=== PATIENT | female | born 1965 | race Caucasian/White ===

== ENCOUNTER 2019-08-01 16:28 | Emergency (ER) | payer MEDICAID ==
[2019-08-01 17:02] LABS: BASOPHILS # (AUTO) 0.1 10^3/uL (0.0-0.1); BASOPHILS % (AUTO) 0.6 %; EOSINOPHILS # (AUTO) 0.3 10^3/uL (0.0-0.7); EOSINOPHILS % (AUTO) 2.3 %; HGB - HEMOGLOBIN 15.1 g/dL (12.0-16.0); LYMPHOCYTES # (AUTO) 3.2 10^3/uL (1.5-3.5); LYMPHOCYTES % (AUTO) 26.4 %; MEAN CORPUSCULAR HEMOGLOBIN 31.1 pg (27.0-31.0); MEAN CORPUSCULAR HGB CONC 34.4 g/dL (32.0-36.0); MEAN CORPUSCULAR VOLUME 90.3 fL (81.0-99.0); MEAN PLATELET VOLUME 10.2 fL (7.9-10.8); MONOCYTES % (AUTO) 8.2 %; NEUTROPHILS # (AUTO) 7.6 10^3/uL (1.5-6.6); NEUTROPHILS % (AUTO) 62.2 %; PLT - PLATELET COUNT 332 10^3/uL (130-450); RED BLOOD COUNT 4.86 10^6/uL (4.20-5.40); RED CELL DISTRIBUTION WIDTH 13.8 % (12.0-15.0); WHITE BLOOD COUNT 12.3 x10^3/uL (4.8-10.8)
[2019-08-01 17:09] LABS: PT - PROTHROMBIN TIME 11.3 secs (9.9-12.6)
--- NOTE | 2019-08-01 17:11 | ED Physician Documentation ---
PD HPI NVD - Stated complaint Stated Complaint: RECTAL BLEEDING - Chief complaint Chief Complaint: Abd Pain - History obtained from History obtained from: Patient - History of Present Illness Timing - onset: Last night Timing - duration: Days (1) Timing - details: Abrupt onset Pain level max: 5 Pain level now: 4 Associated symptoms: Abdominal pain (crampy), Hematochezia. No: Fever, Chest pain, Hematemesis, Melena, Dizzy, Near syncope / syncope, Loss of appetite, Weight loss, Dysuria, Hematuria, Vaginal bleeding, Vaginal dc Contributing factors: Recent antibiotics Improved by: Other (nothing) Worsened by: Other (nothing) Recently seen: Not recently seen - Additonal information Additional information: 53-year-old female presents to the emergency department with nausea, vomiting, diarrhea last night followed by a small amount of rectal bleeding today. Bright red blood per rectum. Nothing makes it better or worse. No fevers. Review of Systems Ten Systems: 10 systems reviewed and negative Constitutional: denies: Fever, Chills Throat: denies: Sore throat Cardiac: denies: Chest pain / pressure, Palpitations Respiratory: denies: Cough GI: reports: Vomiting, Diarrhea. denies: Hematemesis : denies: Dysuria, Now EGA Skin: denies: Rash Musculoskeletal: denies: Neck pain, Back pain PD PAST MEDICAL HISTORY - Past Medical History Respiratory: Asthma - Past Surgical History /[employer]: Hysterectomy - Present Medications Home Medications: Ambulatory Orders Medication Instructions Recorded Confirmed Albuterol Sulfate [Albuterol 2 puffs PO Q8HR PRN 07/22/14 07/22/14 Sulfate Hfa] cephALEXin [Keflex] 500 mg PO Q6H #20 capsule 07/22/14 - Allergies Allergies/Adverse Reactions: Allergies Allergy/AdvReac Type Severity Reaction Status Date / Time No Known Drug Allergies Allergy Verified 08/01/19 16:34 - Social History Does the pt smoke?: No Smoking Status: Never smoker Does the pt drink ETOH?: Yes Does the pt have substance abuse?: No - Immunizations Immunizations are current?: Yes - POLST Patient has POLST: No PD ED PE NORMAL - Vitals Vital signs reviewed: Yes - General General: Alert and oriented X 3, No acute distress, Well developed/nourished - HEENT HEENT: Moist mucous membranes - Neck Neck: Supple, no meningeal sign - Cardiac Cardiac: RRR, Strong equal pulses - Respiratory Respiratory: No respiratory distress, Clear bilaterally - Abdomen Abdomen: Soft, Non tender, Non distended - Female Female : Pt declined - Derm Derm: Warm and dry, No rash - Extremities Extremities: No edema, No calf tenderness / cord - Neuro Neuro: Alert and oriented X 3 - Psych Psych: Normal mood, Normal affect Results - Vitals Vitals: Vital Signs - 24 hr 08/01/19 08/01/19 08/01/19 16:34 16:59 18:38 Temperature 37.3 C Heart Rate 86 85 82 Respiratory 16 18 16 Rate Blood Pressure 138/55 H 141/111 H 116/70 O2 Saturation 98 98 98 08/01/19 08/01/19 19:11 19:14 Temperature 36.5 C 36.5 C Heart Rate 67 65 Respiratory 19 16 Rate Blood Pressure 107/61 107/61 O2 Saturation 96 97 Oxygen O2 Source Room air - Labs Labs: Laboratory Tests 08/01/19 08/01/19 08/01/19 16:54 16:54 17:04 WBC 12.3 H RBC 4.86 Hgb 15.1 Hct 43.9 MCV 90.3 MCH 31.1 H MCHC 34.4 RDW 13.8 Plt Count 332 MPV 10.2 Neut # (Auto) 7.6 H Lymph # (Auto) 3.2 [place] # (Auto) 1.0 Eos # (Auto) 0.3 Baso # (Auto) 0.1 Absolute Nucleated RBC 0.00 Nucleated RBC % 0.0 PT 11.3 INR 1.0 APTT 31.6 Sodium 137 Potassium 3.8 Chloride 104 Carbon Dioxide 25 Anion Gap 8.0 BUN 19 Creatinine 0.7 Estimated GFR (MDRD) 88 L Glucose 104 H Calcium 8.9 Total Bilirubin 0.9 AST 23 ALT 34 Alkaline Phosphatase 102 Total Protein 7.5 Albumin 4.3 Globulin 3.2 Albumin/Globulin Ratio 1.3 Lipase 25 Urine Color Urine Clarity Urine pH Ur Specific [place] Urine Protein Urine Glucose (UA) Urine Ketones Urine Occult Blood Urine Nitrite Urine Bilirubin Urine Urobilinogen Ur Leukocyte Esterase Ur Microscopic Review Urine Culture Comments Blood Type Antibody Screen 08/01/19 08/01/19 17:05 17:33 WBC RBC Hgb Hct MCV MCH MCHC RDW Plt Count MPV Neut # (Auto) Lymph # (Auto) [place] # (Auto) Eos # (Auto) Baso # (Auto) Absolute Nucleated RBC Nucleated RBC % PT INR APTT Sodium Potassium Chloride Carbon Dioxide Anion Gap BUN Creatinine Estimated GFR (MDRD) Glucose Calcium Total Bilirubin AST ALT Alkaline Phosphatase Total Protein Albumin Globulin Albumin/Globulin Ratio Lipase Urine Color YELLOW Urine Clarity CLEAR Urine pH 6.0 Ur Specific [place] 1.025 Urine Protein NEGATIVE Urine Glucose (UA) NEGATIVE Urine Ketones NEGATIVE Urine Occult Blood NEGATIVE Urine Nitrite NEGATIVE Urine Bilirubin NEGATIVE Urine Urobilinogen 0.2 (NORMAL) Ur Leukocyte Esterase NEGATIVE Ur Microscopic Review NOT INDICATED Urine Culture Comments NOT INDICATED Blood Type O POSITIVE Antibody Screen NEGATIVE - Rads (name of study) CT abdomen pelvis Radiology: Prelim report reviewed, EMP read contemporaneously, See rad report (Colonic diverticulosis without diverticulitis. 3.2 cm left ovarian cyst. If the patient is postmenopausal, follow-up ultrasound is recommended in 3 months. ) PD MEDICAL DECISION MAKING - ED course Complexity details: reviewed results, re-evaluated patient, considered differential, d/w patient ED course: 53-year-old female with bright red blood per rectum after what sounds like a vomiting and diarrhea. Possible gastroenteritis. She is very well-appearing, nontoxic. Afebrile. Tolerating p.o. without difficulty here. No further bleeding. Recommend that she follow-up with her doctor for colonoscopy. She also has a left ovarian cyst, 3.2 cm. She is postmenopausal and recommended to her that she follow-up with her doctor for an ultrasound within 3 months. Patient counseled regarding signs and symptoms for which I believe and urgent re-evaluation would be necessary. Patient with good understanding of and agreement to plan and is comfortable going home at this time This document was made in part using voice recognition software. While efforts are made to proofread this document, sound alike and grammatical errors may occur. Departure - Departure Disposition: 01 Home, Self Care Clinical Impression: Hematochezia, Gastroenteritis Ovarian cyst Qualifiers: Laterality: left Qualified Code(s): N83.202 - Unspecified ovarian cyst, left side Condition: Good Instructions: ED Hematochezia Stable, ED Gastroenteritis Viral Follow-Up: your,doctor in 1 week [Other] Comments: This should improve over the next few days. Return if you worsen. Drink plenty of fluids and rest. You should have a colonoscopy after all of this settles down as well. You do have a left-sided ovarian cyst that needs a repeat ultrasound in approximately 3 months as you are menopausal. Colonic diverticulosis without diverticulitis. 3.2 cm left ovarian cyst. If the patient is postmenopausal, follow-up ultrasound is recommended in 3 months. Discharge Date/Time: 08/01/19 19:15
[2019-08-01 17:16] LABS: ALBUMIN 4.3 g/dL (3.2-5.5); ALBUMIN/GLOBULIN RATIO 1.3 (1.0-2.2); BILIRUBIN,TOTAL 0.9 mg/dL (0.2-1.0); CALCIUM 8.9 mg/dL (8.5-10.3); CREATININE 0.7 mg/dL (0.4-1.0); TOTAL PROTEIN 7.5 g/dL (6.7-8.2)
[2019-08-01 17:17] LABS: PARTIAL THROMBOPLASTIN TIME 31.6 secs (24.9-33.3)
[2019-08-01] MEDS ORDERED: IOVERSOL 320 100 ML VIAL IVP ONE ×2 (17:22→17:53)
[2019-08-01 17:36] LABS: BILIRUBIN,URINE NEGATIVE (NEGATIVE); CLARITY,URINE CLEAR (CLEAR); GLUCOSE, URINE (UA) NEGATIVE (NEGATIVE); KETONES,URINE (UA) NEGATIVE (NEGATIVE); LEUKOCYTE ESTERASE, URINE NEGATIVE (NEGATIVE); NITRITE,URINE NEGATIVE (NEGATIVE); OCCULT BLOOD,URINE NEGATIVE (NEGATIVE); PROTEIN,URINE NEGATIVE (NEGATIVE); UROBILINOGEN,URINE 0.2 (NORMAL) E.U./dL (NORMAL)
--- NOTE | 2019-08-01 18:13 | CT Report ---
Reason: abd pain, rectal bleeding Procedure Date: 08/01/2019 Accession Number: [id number] / [id number] Procedure: CT - Abdomen/Pelvis W CPT Code: Final Report FULL RESULT: EXAM: CT ABDOMEN AND PELVIS EXAM DATE: 08/01/2019 05:42 PM. CLINICAL HISTORY: Abd pain, rectal bleeding. COMPARISONS: None. TECHNIQUE: Routine helical CT imaging was performed through the abdomen and pelvis. IV contrast: OPTIRAY 320. Enteric contrast: No. Reconstructions: Coronal and sagittal. In accordance with CT protocol optimization, one or more of the following dose reduction techniques were utilized for this exam: automated exposure control, adjustment of mA and/or KV based on patient size, or use of iterative reconstructive technique. FINDINGS: ABDOMEN: Lung Bases: Incompletely included lower lungs demonstrate scattered bulla. Heart size is within normal limits. No basilar effusions. Liver: Unremarkable. Spleen: Unremarkable. Pancreas: Unremarkable. Gallbladder/Bile Ducts: Gallbladder is unremarkable. Biliary tree is normal caliber. Adrenal Glands: Unremarkable. Kidneys: No mass, calculi, or hydronephrosis. Peritoneum/Mesentery/Bowel: No free fluid, free air, or collection. No intestinal obstruction or inflammation. Colonic diverticulosis is present. The appendix is within normal limits. Lymph nodes: No mesenteric, periportal, or retroperitoneal lymphadenopathy. Vasculature: Abdominal aorta is nonaneurysmal. Portal vein is patent. Hepatic veins are patent. PELVIS: The bladder is unremarkable for the degree of distention. Uterus is absent. 3.2 cm cystic structure in the left ovary measuring simple fluid density. No pelvic lymphadenopathy. Bones: No suspicious osseous lesions. IMPRESSION: Colonic diverticulosis without diverticulitis. 3.2 cm left ovarian cyst. If the patient is postmenopausal, follow-up ultrasound is recommended in 3 months. [facility]
[2019-08-01 19:12] VITALS: BP 107/61
== END 2019-08-01 19:15 | disposition home or self-care (01) ==
LOC: ED 16:28
DX: K92.1 Melena (principal); K52.9 Noninfective gastroenteritis and colitis, unspecified; N83.202 Unspecified ovarian cyst, left side; K57.30 Diverticulosis of large intestine without perforation or abscess without bleeding
CPT/HCPCS: 36415; 74177; 80053; 81003; 83690; 85025; 85610; 85730; 86850; 86900; 86901; 99284; Q9967; 81001; 87086

== ENCOUNTER 2019-09-27 12:07 | Outpatient (CLI) | payer MEDICAID | END 2019-09-27 12:08 | disposition short-term general hospital (02) | LOC: EMS 12:07 | PROVIDERS: ATTEND Surgery | DX: S81.802A Unspecified open wound, left lower leg, initial encounter (principal); M54.2 Cervicalgia; V49.40XA Driver injured in collision with unspecified motor vehicles in traffic accident, initial encounter; Y92.413 State road as the place of occurrence of the external cause | CPT/HCPCS: A0425; A0427; A0999 ==